=== PATIENT | female | born 1950 | race Caucasian/White ===

== ENCOUNTER 2017-05-05 07:03 | Day surgery (SDC) | payer MEDICARE ==
[~2017-05-05] VITALS: Ht 154.9 cm; Wt 68.0 kg
[~2017-05-05 07:03] MED LIST: ALPR.5 PO; ANORO ELLIPTA1 EACH INH; ASPI325 PO; ATOR20 PO; CLOP75 PO; ESCI10 PO; FISH1000 PO; NITR.4SL SL; Omeprazole20 M1 PO; Prinivil10 MG PO; VITAMIN D31000 UNIT PO
== END 2017-05-05 23:24 | disposition home or self-care (01) ==
LOC: ORSCMMR 07:03
PROVIDERS: Internal Medicine Gastroenterology
PROC: 0DB68ZX Excision of Stomach, Via Natural or Artificial Opening Endoscopic, Diagnostic (ICD-10-PCS; principal; 2017-05-05 08:00)
PROC: 0DB88ZX Excision of Small Intestine, Via Natural or Artificial Opening Endoscopic, Diagnostic (ICD-10-PCS; principal; 2017-05-05 08:00)
PROC: 0DBK8ZX Excision of Ascending Colon, Via Natural or Artificial Opening Endoscopic, Diagnostic (ICD-10-PCS; principal; 2017-05-05 08:00)
PROC: 0DBN8ZX Excision of Sigmoid Colon, Via Natural or Artificial Opening Endoscopic, Diagnostic (ICD-10-PCS; principal; 2017-05-05 08:00)
PROC: 0DBM8ZX Excision of Descending Colon, Via Natural or Artificial Opening Endoscopic, Diagnostic (ICD-10-PCS; principal; 2017-05-05 08:00)
PROC: 0DBL8ZX Excision of Transverse Colon, Via Natural or Artificial Opening Endoscopic, Diagnostic (ICD-10-PCS; principal; 2017-05-05 08:00)
PROC: 0DBH8ZX Excision of Cecum, Via Natural or Artificial Opening Endoscopic, Diagnostic (ICD-10-PCS; principal; 2017-05-05 08:00)
DX: R10.13 Epigastric pain (principal); K29.80 Duodenitis without bleeding; K29.70 Gastritis, unspecified, without bleeding; K44.9 Diaphragmatic hernia without obstruction or gangrene; Z86.010 Personal history of colon polyps; D12.0 Benign neoplasm of cecum; D12.2 Benign neoplasm of ascending colon; D12.3 Benign neoplasm of transverse colon; K63.5 Polyp of colon; K64.8 Other hemorrhoids; K64.4 Residual hemorrhoidal skin tags; Z80.0 Family history of malignant neoplasm of digestive organs; J44.9 Chronic obstructive pulmonary disease, unspecified; G47.33 Obstructive sleep apnea (adult) (pediatric); F17.210 Nicotine dependence, cigarettes, uncomplicated; Z79.899 Other long term (current) drug therapy; Z79.82 Long term (current) use of aspirin
CPT/HCPCS: 88305; 88342; J2250; J7120

== ENCOUNTER → 2017-09-16 | Outpatient (CLI) | payer MEDICARE ==
[2017-09-16 13:22] LABS: Adenovirus F 40/41 Not Detected (NOT DETECT); Astrovirus Not Detected (NOT DETECT); Campylobacter Sp Not Detected (NOT DETECT); Cryptosporidium Not Detected (NOT DETECT); Cyclospora Cayetanensis Not Detected (NOT DETECT); E. Coli O157 Not Detected (NOT DETECT); Entamoeba Histolytica Not Detected (NOT DETECT); Enteroaggregative E. coli-EAEC Not Detected (NOT DETECT); Enteropathogenic E. coli-EPEC Not Detected (NOT DETECT); Enterotoxigenic E. coli-ETEC Not Detected (NOT DETECT); Giardia Lamblia Not Detected (NOT DETECT); Norovirus GI/GII Not Detected (NOT DETECT); Plesiomonas Shigelloides Not Detected (NOT DETECT); Rotavirus A Not Detected (NOT DETECT); Salmonella Sp Not Detected (NOT DETECT); Sapovirus Not Detected (NOT DETECT); Shiga Toxin-prod E. coli-STEC Not Detected (NOT DETECT); Shigella/Enteroin E. coli-EIEC Not Detected (NOT DETECT); Vibrio Cholerae Not Detected (NOT DETECT); Vibrio Sp Not Detected (NOT DETECT); Yersinia Enterocolitica Not Detected (NOT DETECT)
== END ==
LOC: LAB EV 13:15
PROVIDERS: Physician Assistant
DX: K92.1 Melena (principal)
CPT/HCPCS: 87507

== ENCOUNTER 2018-05-24 09:12 | Day surgery (SDC) | payer MEDICARE ==
[~2018-05-24] VITALS: Ht 154.9 cm; Wt 73.0 kg
[~2018-05-24 09:12] MED LIST changes: +ALBU90OI INH; +NAPR220 PO; +QVAR REDIHALE10.6 G1 INH; +Toprol Xl25 MG PO
--- NOTE | 2018-05-24 09:54 | NUR ---
0930 Ambulatory in Day Surgery History, Chart, Medications and Allergies reviewed before start of procedure.Lungs clear T/O to Auscultation. Patient confirms NPO status and agrees with scheduled surgery. Pre-Op teaching done. Pt verbalizes understanding.
--- NOTE | 2018-05-24 11:00 | NUR ---
05/24/18 Oumou Pabon PATIENT DETERMINED TO BE ASA APPROPRIATE FOR PROPOFOL SEDATION PRIOR TO START OF PROCEDURE BY DR. ALMANZA. 3-LEAD EKG REVIEWED WITH PHYSICIAN PRIOR TO START OF PROCEDURE. PATIENT CONFIRMS NPO STATUS AND AGREES WITH SCHEDULED PROCEDURE. History, Chart, Medications and Allergies reviewed before start of procedure. MONITOR INTACT WITH CONTINUOUS PULSE OXIMETRY AND INTERMITTENT BP. O2 VIA N/C INTACT THROUGHOUT SEDATION/PROCEDURE, 4 L NC.
--- NOTE | 2018-05-24 11:29 | NUR ---
DR ALMANZA TALKING TO PATIENT. PT NEEDS TO KEEP FOLLOW UP APPOINTMENT. PT NEEDS TO STOP NSAIDS AND RESTART ASPIRIN AND PLAVIX THAT SHE DISCONTINUED A WEEK AGO.
--- NOTE | 2018-05-24 12:19 | NUR ---
Patient up to Ambulate independently. Gait steady. Discharge instructions reviewed with patient. Patient verbalizes understanding. Copy given to patient to take home. Patient States Post-Procedure ride home has been arranged. Discharged via wheelchair to private car for ride home. LUNGS REMAIN CLEAR T/O, PT KEEPING SPO2 AT BASELINE PRIOR TO DISCHARGE. PT AWARE OF ORDERS TO STOP NSAIDS AND RESTART ASA AND PLAVIX. ALL BELONGIGNS RETURNED. IS PROVIDING RIDE HOME.
== END 2018-05-24 22:51 | disposition home or self-care (01) ==
LOC: ORSCMMR 09:12 → ORD 10:00 → ORSCMMR 22:51
PROVIDERS: Internal Medicine Gastroenterology
PROC: 0DB68ZX Excision of Stomach, Via Natural or Artificial Opening Endoscopic, Diagnostic (ICD-10-PCS; principal; 2018-05-24 10:00)
PROC: 0DB98ZX Excision of Duodenum, Via Natural or Artificial Opening Endoscopic, Diagnostic (ICD-10-PCS; principal; 2018-05-24 10:00)
DX: K29.70 Gastritis, unspecified, without bleeding (principal); K29.80 Duodenitis without bleeding; B96.81 Helicobacter pylori [H. pylori] as the cause of diseases classified elsewhere; I25.10 Atherosclerotic heart disease of native coronary artery without angina pectoris; Z79.899 Other long term (current) drug therapy; G47.33 Obstructive sleep apnea (adult) (pediatric); J44.9 Chronic obstructive pulmonary disease, unspecified; F17.210 Nicotine dependence, cigarettes, uncomplicated
CPT/HCPCS: 88305; 88341; 88342; J2250; J3010; J7120

== ENCOUNTER 2018-08-25 06:51 | Day surgery (SDC) | payer MEDICARE ==
[~2018-08-25] VITALS: Wt 72.4 kg
[~2018-08-25 06:51] MED LIST changes: -ESCI10 PO; +ESCI20 PO; -Prinivil10 MG PO; +ZESTRIL40 MG PO
--- NOTE | 2018-08-25 07:13 | NUR ---
INTO [facility] ADMISSION STARTED AT THIS TIME. History, Chart, Medications and Allergies reviewed before start of procedure.Lungs clear T/O to Auscultation. Patient States Post-Procedure ride home has been arranged.
--- NOTE | 2018-08-25 08:05 | NUR ---
08/25/18 0805 Tra Anders Bite Block PlacedHistory, Chart, Medications and Allergies reviewed before start of procedure.Patient to ENDO 1MONITOR INTACT WITH CONTINUOUS PULSE OXIMETRY AND INTERMITTENT BP.O2 VIA N/C INTACT THROUGHOUT SEDATION/PROCEDURE.
[2018-08-26] MEDS ORDERED: INCRUSE ELLI62.5 MCG INH (15:25)
[2018-08-26] MEDS ORDERED: PANT40 PO (15:26)
[2018-08-26] MEDS ORDERED: ALPR.5 PO (15:28)
[2018-08-26] MEDS ORDERED: ACET325 PO (15:28)
[2018-08-26] MEDS ORDERED: LO-DOSE ASPIRIN81 MG PO (16:01)
[2018-08-26] MEDS ORDERED: VITAMIN B-625 MG PO (16:02)
== END 2018-08-25 23:09 | disposition home or self-care (01) ==
LOC: ORSCMMR 06:51 → ORD 08:00 → ORSCMMR 23:09
PROVIDERS: Internal Medicine Gastroenterology
PROC: 0DB68ZX Excision of Stomach, Via Natural or Artificial Opening Endoscopic, Diagnostic (ICD-10-PCS; principal; 2018-08-25 08:00)
PROC: 0DB58ZX Excision of Esophagus, Via Natural or Artificial Opening Endoscopic, Diagnostic (ICD-10-PCS; principal; 2018-08-25 08:00)
DX: K25.3 Acute gastric ulcer without hemorrhage or perforation (principal); K29.50 Unspecified chronic gastritis without bleeding; B37.81 Candidal esophagitis; I25.10 Atherosclerotic heart disease of native coronary artery without angina pectoris; Z79.82 Long term (current) use of aspirin; I25.2 Old myocardial infarction; G47.33 Obstructive sleep apnea (adult) (pediatric); J44.9 Chronic obstructive pulmonary disease, unspecified; Z79.899 Other long term (current) drug therapy
CPT/HCPCS: 88305; 88312; J2250; J3010; J7120

== ENCOUNTER 2018-08-26 12:48 | Observation (INO) | payer MEDICARE ==
[~2018-08-26] VITALS: Ht 152.4 cm; Wt 71.2 kg
[2018-08-26 13:38] LABS: BASOPHILS ABSOLUTE AUTO 0.04 K/mm3 (0.00-0.23); BASOPHILS PERCENT AUTO 0 % (0-2); EOSINOPHILS ABSOLUTE AUTO 0.03 K/mm3 (0.00-0.68); EOSINOPHILS PERCENT AUTO 0 % (0-6); Hematocrit 42.8 % (33.0-51.0); Hemoglobin 14.1 g/dL (11.5-16.0); IMMATURE GRAN ABSOLUTE AUTO 0.05 K/mm3 (0.00-0.10); IMMATURE GRAN PERCENT AUTO 0 % (0-1); LYMPHOCYTES ABSOLUTE AUTO 2.15 K/mm3 (0.84-5.20); LYMPHOCYTES PERCENT AUTO 16 % (21-46); MONOCYTES ABSOLUTE AUTO 0.83 K/mm3 (0.16-1.47); MONOCYTES PERCENT AUTO 6 % (4-13); Mean Corpuscular HGB 32.9 pg (26.0-34.0); Mean Corpuscular HGB Conc 32.9 g/dL (31.5-36.5); Mean Corpuscular Volume 100 fL (80-100); Mean Platelet Volume 11.5 fL (9.1-12.4); NEUTROPHILS ABSOLUTE AUTO 10.06 K/mm3 (1.96-9.15); NEUTROPHILS PERCENT AUTO 77 % (41-73); Platelet Count 178 K/mm3 (150-400); RDW Coefficient Variation 12.3 % (11.7-14.2); RDW Standard Deviation 45.3 fL (35.1-46.3); Red Blood Cell Count 4.29 M/mm3 (3.80-5.20); White Blood Cell Count 13.16 K/mm3 (4.00-11.30)
[2018-08-26 14:05] LABS: Albumin, Blood 3.9 g/dL (3.4-5.0); Bilirubin, Total 0.5 mg/dL (0.1-1.0); Bun/Creatinine Ratio 10.9 (12.0-20.0); Calcium, Blood 8.8 mg/dL (8.5-10.1); Creatinine, Blood 1.01 mg/dL (0.40-1.00); Globulin, Blood 3.8 g/dL (2.2-4.0); Potassium, Blood 4.1 mmol/L (3.5-5.5); Total Protein, Blood 7.7 g/dL (6.4-8.2)
[2018-08-26] MEDS ORDERED: INCRUSE ELLI62.5 MCG INH (15:25)
[2018-08-26] MEDS ORDERED: PANT40 PO (15:26)
[2018-08-26] MEDS ORDERED: ACET325 PO (15:28)
[2018-08-26] MEDS ORDERED: ALPR.5 PO (15:28)
[2018-08-26] MEDS ORDERED: LO-DOSE ASPIRIN81 MG PO (16:01)
[2018-08-26] MEDS ORDERED: VITAMIN B-625 MG PO (16:02)
[2018-08-26 17:01] LABS: International Normalized Ratio 0.91; Prothrombin Time Results 9.7 Sec (9.7-11.5)
[2018-08-27 04:56] LABS: Hematocrit 39.3 % (33.0-51.0); Hemoglobin 13.2 g/dL (11.5-16.0)
[2018-08-27 13:06] LABS: Hematocrit 40.9 % (33.0-51.0); Hemoglobin 13.7 g/dL (11.5-16.0)
--- NOTE | 2018-08-27 14:04 | NUR ---
Ambulatory in Day Surgery History, Chart, Medications and Allergies reviewed before start of procedure.Lungs clear T/O to Auscultation. Patient confirms NPO status and agrees with scheduled surgery. Pre-Op teaching done. Pt verbalizes understanding.
--- NOTE | 2018-08-27 16:04 | NUR ---
08/27/18 [address] per dr de los santos would like to use propofol for procedure instead of fent. and versed. nurse agrees and patient maintained sats no less than 94% during entire procedure and predominately was saturating at 99-100 %
--- NOTE | 2018-08-27 17:51 | NUR ---
SHIFT SUMMARY NO ACUTE CHANGES. PATIENT STILL EXPERIENCING SOME JILLIAN BLOOD PER RECTUM. DR. ROYAL CONSULTED ON PATIENT TODAY. COLONOSCOPY COMPLETED THIS AFTERNOON. IMAGES SHOW ISCHEMIC COLITIS. PATIENT DENIES PAIN, NAUSEA, AND SHORTNESS OF BREATH. PATIENT UP SBA IN ROOM POST PROCEDURE. CALL LIGHT IN REACH, WILL CONTINUE TO MONITOR.
[2018-08-27 21:08] LABS: Hematocrit 37.9 % (33.0-51.0); Hemoglobin 12.6 g/dL (11.5-16.0)
--- NOTE | 2018-08-27 21:26 | NUR ---
NOTIFIED TELE MONITOR THAT PT WENT OUTSIDE TO SMOKE. PT UNDERSTANDS THE RISKS OF BEING OFF TELE. PT USED W/C TO GO OUTSIDE. NO COMPLAINTS OF DIZZINESS OR LIGHTHEADEDNESS.
--- NOTE | 2018-08-27 21:57 | NUR ---
PT BACK TO RM. NOTIFIED TELE MONITOR. CURRENTLY 96 NSR.
--- NOTE | 2018-08-28 04:40 | NUR ---
SHIFT SUMMARY: PT FEELING BETTER. NO BLOODY STOOLS. PT HAS BEEN INDEPENDENT IN RM. WENT OUTSIDE TWICE AT THE BEGINNING OF SHIFT WITHOUT DIFFICULTY. NO COMPLAINTS OF PAIN OR NAUSEA. H AND H STABLE. NO ACUTE CHANGES. WILL CONTINUE TO MONITOR AND PROVIDE CARE UNTIL SHIFT REPORT.
[2018-08-28] MEDS ORDERED: FLUC100 PO (11:09)
[2018-08-28] MEDS ORDERED: CIPR500 PO (11:10)
[2018-08-28] MEDS ORDERED: METR500 PO (11:11)
--- NOTE | 2018-08-28 14:02 | NUR ---
SHIFT SUMMARY PT SITTING IN [place], WANTING TO GO OUT TO [facility] DURING SHIFT REPORT. PT ALSO WANTED TO GO HOME DURING SHIFT REPORT. ADMITTED FOR JILLIAN RED BLOOD PER RECTUM, BUT REPORTED NO BLOODY STOOLS SINCE ADMISSION. STOOL SAMPLES ORDERED, BUT UNABLE TO OBTAIN, PT HAD NOT HAD ANY BM'S WHILE HERE. DENIED PAIN, BUT REPORTED OCCASSIONAL SM AMT OF ABD CRAMPING. PT UP AMBULATING IN HALLS AND OUT TO K SEVERAL TIMES DURING THE AM. DR WANG IN TO SEE PT AFTER START OF SHIFT. VERBAL ORDER TO D/C ISOLATION PT DX WITH COLITIS. D/C ORDERS PLACED. PT INFORMED. PT OUT TO [facility] AGAIN WHEN DR ROYAL TO TO SEE PT. UPDATE GIVEN AND PT TO BE D/C'D AND FOLLOW UP WITH DR ALMANZA OUT PT. IV TO LAC D/C'D WNL'S. D/C ORDERS DISCUSSED WITH PT; VERBALIZED UNDERSTANDING. PT TO CONTINUE ABX'S ORDERED. MEDICATIONS FAXED TO PHARMACY ORDERED. PT D/C'D AT 11:45 VIA W/C WITH IT APPLICATION DEVELOPMENT MANAGER AND .
== END 2018-08-28 11:44 | disposition home or self-care (01) ==
LOC: ER 12:48 → MEDS 12:49 → ENPENDDIS 08-28 10:22 → MEDS 08-28 11:44
PROVIDERS: Emergency Medicine; Internal Medicine Gastroenterology; ADMIT Internal Medicine
PROC: 0DBN8ZX Excision of Sigmoid Colon, Via Natural or Artificial Opening Endoscopic, Diagnostic (ICD-10-PCS; principal; 2018-08-27 14:00)
DX: K52.9 Noninfective gastroenteritis and colitis, unspecified (principal); K55.9 Vascular disorder of intestine, unspecified; K57.30 Diverticulosis of large intestine without perforation or abscess without bleeding; I10 Essential (primary) hypertension; I25.10 Atherosclerotic heart disease of native coronary artery without angina pectoris; J44.9 Chronic obstructive pulmonary disease, unspecified; F32.9 Major depressive disorder, single episode, unspecified; G47.33 Obstructive sleep apnea (adult) (pediatric); F17.210 Nicotine dependence, cigarettes, uncomplicated; Z99.89 Dependence on other enabling machines and devices; Z88.5 Allergy status to narcotic agent
CPT/HCPCS: 36415; 46600; 74176; 80053; 85014; 85018; 85025; 85610; 85730; 86850; 86900; 86901; 88305; 93005; 93010; 94762; 96361; 96365-59; 96366; 96367; 96375-59; 96376; 99285-25; C9113; G0378; J0744; J2250; J2704; J3010; J7050; J7120

== ENCOUNTER → 2018-10-12 | Outpatient (CLI) | payer MEDICARE ==
[~2018-10-12] MED LIST changes: +ACET325 PO; +CIPR500 PO; +FLUC100 PO; +INCRUSE ELLI62.5 MCG INH; +LO-DOSE ASPIRIN81 MG PO; +METR500 PO; +PANT40 PO; +VITAMIN B-625 MG PO
== END | disposition home or self-care (01) ==
LOC: LAB 11:12 → LAB SHORT 11:12
DX: R05 Cough (principal)
CPT/HCPCS: 87070; 87205

== ENCOUNTER → 2018-12-08 | Outpatient (CLI) | payer MEDICARE | END | disposition home or self-care (01) | LOC: LAB EV 12:00 → LAB SHORT 12:00 | DX: N30.90 Cystitis, unspecified without hematuria (principal) | CPT/HCPCS: 87077; 87086; 87186 ==

== ENCOUNTER 2019-02-21 14:03 | Emergency (ER) | payer MEDICARE ==
[~2019-02-21] VITALS: Ht 152.4 cm; Wt 72.6 kg
[2019-02-21 14:39] LABS: BASOPHILS ABSOLUTE AUTO 0.07 K/mm3 (0.00-0.23); BASOPHILS PERCENT AUTO 1 % (0-2); EOSINOPHILS PERCENT AUTO 3 % (0-6); Hematocrit 40.8 % (33.0-51.0); Hemoglobin 13.2 g/dL (11.5-16.0); IMMATURE GRAN ABSOLUTE AUTO 0.04 K/mm3 (0.00-0.10); IMMATURE GRAN PERCENT AUTO 0 % (0-1); LYMPHOCYTES ABSOLUTE AUTO 3.49 K/mm3 (0.84-5.20); LYMPHOCYTES PERCENT AUTO 35 % (21-46); MONOCYTES ABSOLUTE AUTO 0.63 K/mm3 (0.16-1.47); MONOCYTES PERCENT AUTO 6 % (4-13); Mean Corpuscular HGB 32.9 pg (26.0-34.0); Mean Corpuscular HGB Conc 32.4 g/dL (31.5-36.5); Mean Corpuscular Volume 102 fL (80-100); Mean Platelet Volume 11.8 fL (9.1-12.4); NEUTROPHILS ABSOLUTE AUTO 5.58 K/mm3 (1.96-9.15); NEUTROPHILS PERCENT AUTO 55 % (41-73); Platelet Count 165 K/mm3 (150-400); RDW Coefficient Variation 12.2 % (11.7-14.2); RDW Standard Deviation 46.3 fL (35.1-46.3); Red Blood Cell Count 4.01 M/mm3 (3.80-5.20); White Blood Cell Count 10.11 K/mm3 (4.00-11.30)
[2019-02-21 14:56] LABS: Alanine Aminotransfer (ALT/SGP 21 U/L (12-78); Albumin, Blood 3.8 g/dL (3.4-5.0); Alk Phos 124 U/L (50-136); Anion Gap 6 mmol/L (6-16); Aspartate Aminotrans (AST/SGOT 18 U/L (12-37); Bilirubin, Total 0.5 mg/dL (0.1-1.0); Blood Urea Nitrogen 14 mg/dL (8-24); Bun/Creatinine Ratio 14.7 (12.0-20.0); CO2, Blood 28 mmol/L (21-32); Calcium, Blood 9.1 mg/dL (8.5-10.1); Chloride, Blood 107 mmol/L (98-108); Creatinine, Blood 0.96 mg/dL (0.40-1.00); Globulin, Blood 3.7 g/dL (2.2-4.0); Glomerular Filtration Rate >60 (60-); Glucose, Blood 111 mg/dL (70-99); Potassium, Blood 3.8 mmol/L (3.5-5.5); Sodium, Blood 141 mmol/L (136-145); Total Protein, Blood 7.5 g/dL (6.4-8.2)
[2019-02-21] MEDS ORDERED: Klonopin0.5 MG PO (17:05)
[2019-02-21] MEDS ORDERED: Vistaril25 MG PO (17:05)
== END 2019-02-21 17:30 | disposition home or self-care (01) ==
LOC: ER 14:03
PROVIDERS: Physician Assistant
DX: A15.0 Tuberculosis of lung (principal); I25.10 Atherosclerotic heart disease of native coronary artery without angina pectoris; J44.9 Chronic obstructive pulmonary disease, unspecified; F32.9 Major depressive disorder, single episode, unspecified; F17.210 Nicotine dependence, cigarettes, uncomplicated; Z88.5 Allergy status to narcotic agent; Z79.899 Other long term (current) drug therapy
CPT/HCPCS: 36415; 71046; 80053; 85025; 99283-25

== ENCOUNTER 2019-03-09 09:48 | Day surgery (SDC) | payer MEDICARE ==
[~2019-03-09 09:48] MED LIST changes: +Klonopin0.5 MG PO; +Vistaril25 MG PO
--- NOTE | 2019-03-09 11:33 | NUR ---
"DAY SURGERY RN | REPORT FROM ASHISH HUIZAR PATIENT VSS. A/O. STATES PAIN 05/09. SITE C/D/I. NO ISSUES. EATING FOOD AND DRINKING WATER."
--- NOTE | 2019-03-09 11:44 | NUR ---
"DAY SURGERY RN | REPORT TO KODAK HUIZAR"
--- NOTE | 2019-03-09 13:18 | NUR ---
PT TAKEN TO IMAGING FOR SECOND CHEST XRAY VIA GURNEY WITH FUGITIVE DETECTIVE. PLAN IS TO DISCHARGE PT FROM IMAGING UNLESS FURTHER OBSERVATION IS NEEDED.
== END 2019-03-09 22:49 | disposition home or self-care (01) ==
LOC: CT 09:48
DX: C34.2 Malignant neoplasm of middle lobe, bronchus or lung (principal); J43.9 Emphysema, unspecified; I10 Essential (primary) hypertension; F17.210 Nicotine dependence, cigarettes, uncomplicated; Z79.82 Long term (current) use of aspirin; Z79.02 Long term (current) use of antithrombotics/antiplatelets; Z79.51 Long term (current) use of inhaled steroids; Z79.899 Other long term (current) drug therapy; Z88.5 Allergy status to narcotic agent; Z88.1 Allergy status to other antibiotic agents; Z95.5 Presence of coronary angioplasty implant and graft
CPT/HCPCS: 32405; 71045; 77012; 88305; 88341; 88342

== ENCOUNTER → 2019-06-24 | Outpatient (CLI) | payer MEDICARE ==
[2019-06-24 12:29] LABS: Source, Urine Clean Catch
[2019-06-24 13:40] LABS: Bacteria Mod /hpf; Red Blood Cells, Urine 0-2 /hpf (0-2); Squamous Epithelial Cells Few /hpf (Few); White Blood Cells, Urine 0-2 /hpf (0-5)
== END | disposition home or self-care (01) ==
LOC: LAB EV 12:26 → LAB SHORT 12:26
PROVIDERS: Physician Assistant
DX: R30.9 Painful micturition, unspecified (principal)
CPT/HCPCS: 81015; 87086

== ENCOUNTER → 2019-07-22 | Outpatient (CLI) | payer MEDICARE ==
[~2019-07-22] MED LIST changes: +ASPI81CH PO; +ONDA4ODT PO; +OXYC10TA19 PO
[2019-07-22 14:29] LABS: Bilirubin, Urine Neg (Neg); Blood, Urine 3+ (Neg); Glucose Qualitative, Urine Neg (Neg); Ketones, Urine Neg (Neg); Leukocyte Esterase, Urine Neg (Neg); Nitrite, Urine Neg (Neg); Protein, Urine Neg (Neg); Urobilinogen, Urine 1+ (Normal)
[2019-07-22 14:37] LABS: Appearance, Urine Clear (Clear); Color, Urine Amber (P-Yellow)
[2019-07-22 14:44] LABS: Bacteria Rare /hpf; Squamous Epithelial Cells Few /hpf (Few); White Blood Cells, Urine Not Seen /hpf (0-5)
== END | disposition home or self-care (01) ==
LOC: LAB SHORT 13:30 → LAB 13:30
PROVIDERS: Internal Medicine Critical Care Medicine
DX: R30.0 Dysuria (principal); R05 Cough
CPT/HCPCS: 81001; 87070; 87205

== ENCOUNTER 2019-07-27 12:32 | Emergency (ER) | payer MEDICARE ==
[~2019-07-27] VITALS: Ht 152.4 cm; Wt 68.5 kg
[~2019-07-27 12:32] MED LIST changes: -ASPI81CH PO; -ONDA4ODT PO; -OXYC10TA19 PO
[2019-07-27 14:49] LABS: BASOPHILS ABSOLUTE AUTO 0.08 K/mm3 (0.00-0.23); BASOPHILS PERCENT AUTO 1 % (0-2); EOSINOPHILS ABSOLUTE AUTO 0.73 K/mm3 (0.00-0.68); EOSINOPHILS PERCENT AUTO 6 % (0-6); Hematocrit 34.9 % (33.0-51.0); Hemoglobin 10.8 g/dL (11.5-16.0); IMMATURE GRAN ABSOLUTE AUTO 0.13 K/mm3 (0.00-0.10); IMMATURE GRAN PERCENT AUTO 1 % (0-1); LYMPHOCYTES ABSOLUTE AUTO 2.05 K/mm3 (0.84-5.20); LYMPHOCYTES PERCENT AUTO 16 % (21-46); MONOCYTES ABSOLUTE AUTO 0.96 K/mm3 (0.16-1.47); MONOCYTES PERCENT AUTO 7 % (4-13); Mean Corpuscular HGB 28.6 pg (26.0-34.0); Mean Corpuscular HGB Conc 30.9 g/dL (31.5-36.5); Mean Corpuscular Volume 93 fL (80-100); Mean Platelet Volume 10.9 fL (9.1-12.4); NEUTROPHILS ABSOLUTE AUTO 9.29 K/mm3 (1.96-9.15); NEUTROPHILS PERCENT AUTO 70 % (41-73); Platelet Count 218 K/mm3 (150-400); RDW Coefficient Variation 13.2 % (11.7-14.2); RDW Standard Deviation 44.8 fL (35.1-46.3); Red Blood Cell Count 3.77 M/mm3 (3.80-5.20); White Blood Cell Count 13.24 K/mm3 (4.00-11.30)
[2019-07-27 15:12] LABS: Albumin, Blood 2.9 g/dL (3.4-5.0); Albumin/Globulin Ratio 0.6 (0.8-1.8); Bilirubin, Total 0.3 mg/dL (0.1-1.0); Bun/Creatinine Ratio 8.7 (12.0-20.0); Calcium, Blood 7.8 mg/dL (8.5-10.1); Creatinine, Blood 1.04 mg/dL (0.40-1.00); Globulin, Blood 4.8 g/dL (2.2-4.0); Potassium, Blood 4.2 mmol/L (3.5-5.5); Total Protein, Blood 7.7 g/dL (6.4-8.2)
[2019-07-27 15:43] LABS: Source, Urine Clean Catch
[2019-07-27 16:01] LABS: Bilirubin, Urine Neg (Neg); Blood, Urine 3+ (Neg); Glucose Qualitative, Urine Neg (Neg); Ketones, Urine Neg (Neg); Leukocyte Esterase, Urine Neg (Neg); Nitrite, Urine Neg (Neg); Protein, Urine Neg (Neg); Specific Gravity, Urine 1.005 (1.003-1.022); Urobilinogen, Urine NORM (Normal)
[2019-07-27] MEDS ORDERED: ATOR20 PO (16:06)
[2019-07-27 16:07] LABS: Appearance, Urine Clear (Clear); Color, Urine Yellow (P-Yellow)
[2019-07-27] MEDS ORDERED: ASPI81CH PO (16:07)
[2019-07-27 16:08] LABS: White Blood Cells, Urine Not Seen /hpf (0-5)
[2019-07-27 16:09] LABS: Bacteria Few /hpf; Squamous Epithelial Cells Few /hpf (Few)
[2019-07-27] MEDS ORDERED: OXYC10TA19 PO (16:09)
[2019-07-27] MEDS ORDERED: ONDA4ODT PO (16:09)
== END 2019-07-27 16:30 | disposition home or self-care (01) ==
LOC: ER 12:32
PROVIDERS: Physician Assistant
DX: K59.00 Constipation, unspecified (principal); C34.92 Malignant neoplasm of unspecified part of left bronchus or lung; C34.91 Malignant neoplasm of unspecified part of right bronchus or lung; C78.7 Secondary malignant neoplasm of liver and intrahepatic bile duct; C79.51 Secondary malignant neoplasm of bone; J44.9 Chronic obstructive pulmonary disease, unspecified; I25.10 Atherosclerotic heart disease of native coronary artery without angina pectoris; F32.9 Major depressive disorder, single episode, unspecified; F17.210 Nicotine dependence, cigarettes, uncomplicated; Z88.5 Allergy status to narcotic agent; Z79.899 Other long term (current) drug therapy
CPT/HCPCS: 74177; 80053; 81001; 85025; 99284-25; Q9967

== ENCOUNTER 2019-09-04 09:49 | Emergency (ER) | payer MEDICARE ==
[~2019-09-04] VITALS: Ht 152.4 cm; Wt 63.5 kg
[~2019-09-04 09:49] MED LIST changes: +ASPI81CH PO; +ONDA4ODT PO; +OXYC10TA19 PO
[2019-09-04] MEDS ORDERED: ALPR.5 PO (10:32)
[2019-09-04] MEDS ORDERED: NYSTATIN100000 UN1 PO (10:32)
[2019-09-04] MEDS ORDERED: Ondansetron Odt8 MG MM (10:33)
[2019-09-04] MEDS ORDERED: Deltasone 10 mg10 MG PO (10:33)
[2019-09-04] MEDS ORDERED: ESCI20 PO (10:34)
[2019-09-04] MEDS ORDERED: FOLI1 PO (10:34)
[2019-09-04 10:35] LABS: Source, Urine Clean Catch
[2019-09-04] MEDS ORDERED: OXYC15ER PO (10:35)
[2019-09-04] MEDS ORDERED: DEXA4 PO (10:35)
[2019-09-04] MEDS ORDERED: OXYC10TA19 PO (10:37)
[2019-09-04 10:40] LABS: Appearance, Urine Clear (Clear); Bilirubin, Urine Neg (Neg); Blood, Urine 3+ (Neg); Color, Urine Yellow (P-Yellow); Glucose Qualitative, Urine Neg (Neg); Ketones, Urine Neg (Neg); Leukocyte Esterase, Urine Neg (Neg); Nitrite, Urine Neg (Neg); Protein, Urine 1+ (Neg); Specific Gravity, Urine 1.015 (1.003-1.022); Urobilinogen, Urine NORM (Normal)
[2019-09-04 10:53] LABS: Hematocrit 27.3 % (33.0-51.0); Hemoglobin 8.5 g/dL (11.5-16.0); Mean Corpuscular HGB 28.4 pg (26.0-34.0); Mean Corpuscular HGB Conc 31.1 g/dL (31.5-36.5); Mean Corpuscular Volume 91 fL (80-100); Mean Platelet Volume 10.9 fL (9.1-12.4); Platelet Count 118 K/mm3 (150-400); RDW Standard Deviation 53.4 fL (35.1-46.3); Red Blood Cell Count 2.99 M/mm3 (3.80-5.20)
[2019-09-04 11:11] LABS: Bacteria Not Seen /hpf; Squamous Epithelial Cells Few /hpf (Few); White Blood Cells, Urine Not Seen /hpf (0-5)
[2019-09-04 11:20] LABS: Alanine Aminotransfer (ALT/SGP 29 U/L (12-78); Albumin, Blood 2.7 g/dL (3.4-5.0); Albumin/Globulin Ratio 0.6 (0.8-1.8); Alk Phos 149 U/L (50-136); Anion Gap 8 mmol/L (6-16); Aspartate Aminotrans (AST/SGOT 30 U/L (12-37); Bilirubin, Total 0.9 mg/dL (0.1-1.0); Blood Urea Nitrogen 18 mg/dL (8-24); CO2, Blood 23 mmol/L (21-32); Calcium, Blood 8.1 mg/dL (8.5-10.1); Chloride, Blood 105 mmol/L (98-108); Creatinine, Blood 0.67 mg/dL (0.40-1.00); Globulin, Blood 4.6 g/dL (2.2-4.0); Glomerular Filtration Rate >60 (60-); Glucose, Blood 115 mg/dL (70-99); Potassium, Blood 3.4 mmol/L (3.5-5.5); Sodium, Blood 136 mmol/L (136-145); Total Protein, Blood 7.3 g/dL (6.4-8.2)
[2019-09-04 11:25] LABS: BAND PERCENT MAN 6 % (0-8); BASOPHILS PERCENT MAN 0 % (0-2); EOSINOPHILS PERCENT MAN 0 % (0-6); LYMPHOCYTES ABSOLUTE MAN 0.46 K/mm3 (0.84-5.20); LYMPHOCYTES PERCENT MAN 13 % (21-46); MONOCYTES ABSOLUTE MAN 0.28 K/mm3 (0.16-1.47); MONOCYTES PERCENT MAN 8 % (4-13); NEUTROPHILS ABSOLUTE MAN 2.84 K/mm3 (1.96-9.15); SEG NEUTROPHILS PERCENT MAN 73 % (41-73); TOTAL CELLS COUNTED 100
[2019-09-04] MEDS ORDERED: Bactrim Ds Tab1 EACH PO (12:00)
[2019-09-04] MEDS ORDERED: MIRALAX119 G2 PO (12:00)
[2019-09-04] MEDS ORDERED: CEPH500 PO (12:00)
[2019-09-04] MEDS ORDERED: Reglan10 MG PO (13:15)
== END 2019-09-04 15:41 | disposition home or self-care (01) ==
LOC: ER 09:49
PROVIDERS: Emergency Medicine
DX: K59.00 Constipation, unspecified (principal); R11.2 Nausea with vomiting, unspecified; E87.6 Hypokalemia; L03.039 Cellulitis of unspecified toe; L02.619 Cutaneous abscess of unspecified foot; L23.7 Allergic contact dermatitis due to plants, except food; Z88.5 Allergy status to narcotic agent; Z79.899 Other long term (current) drug therapy; Z79.52 Long term (current) use of systemic steroids; J43.9 Emphysema, unspecified; I25.10 Atherosclerotic heart disease of native coronary artery without angina pectoris; F32.9 Major depressive disorder, single episode, unspecified; F17.210 Nicotine dependence, cigarettes, uncomplicated; Z85.118 Personal history of other malignant neoplasm of bronchus and lung; Z85.05 Personal history of malignant neoplasm of liver; Z85.830 Personal history of malignant neoplasm of bone
CPT/HCPCS: 36415; 80053; 81001; 83690; 85025; 93005; 93010; 96361; 96365; 96366; 96375; 99284-25; J1170; J1200; J2405; J2765; J3480; J7030

== ENCOUNTER 2020-01-01 20:38 | Emergency (ER) | payer MEDICARE ==
[~2020-01-01] VITALS: Ht 152.4 cm; Wt 59.4 kg
[~2020-01-01 20:38] MED LIST changes: +Bactrim Ds Tab1 EACH PO; +CEPH500 PO; +DEXA4 PO; +Deltasone 10 mg10 MG PO; +FOLI1 PO; +MIRALAX119 G2 PO; +NYSTATIN100000 UN1 PO; +OXYC15ER PO; +Ondansetron Odt8 MG MM; +Reglan10 MG PO
[2020-01-01 21:07] LABS: BASOPHILS ABSOLUTE AUTO 0.02 K/mm3 (0.00-0.23); BASOPHILS PERCENT AUTO 0 % (0-2); EOSINOPHILS PERCENT AUTO 0 % (0-6); Hematocrit 47.3 % (33.0-51.0); Hemoglobin 15.3 g/dL (11.5-16.0); IMMATURE GRAN ABSOLUTE AUTO 0.02 K/mm3 (0.00-0.10); IMMATURE GRAN PERCENT AUTO 0 % (0-1); LYMPHOCYTES ABSOLUTE AUTO 0.66 K/mm3 (0.84-5.20); LYMPHOCYTES PERCENT AUTO 8 % (21-46); MONOCYTES ABSOLUTE AUTO 0.29 K/mm3 (0.16-1.47); MONOCYTES PERCENT AUTO 3 % (4-13); Mean Corpuscular HGB 31.3 pg (26.0-34.0); Mean Corpuscular HGB Conc 32.3 g/dL (31.5-36.5); Mean Corpuscular Volume 97 fL (80-100); Mean Platelet Volume 10.8 fL (9.1-12.4); NEUTROPHILS PERCENT AUTO 89 % (41-73); Platelet Count 234 K/mm3 (150-400); RDW Standard Deviation 42.9 fL (35.1-46.3); Red Blood Cell Count 4.89 M/mm3 (3.80-5.20); White Blood Cell Count 8.69 K/mm3 (4.00-11.30)
[2020-01-01 21:24] LABS: Alanine Aminotransfer (ALT/SGP 17 U/L (12-78); Albumin, Blood 4.2 g/dL (3.4-5.0); Alk Phos 99 U/L (50-136); Anion Gap 8 mmol/L (6-16); Aspartate Aminotrans (AST/SGOT 26 U/L (12-37); Bilirubin, Total 0.6 mg/dL (0.1-1.0); Blood Urea Nitrogen 11 mg/dL (8-24); Bun/Creatinine Ratio 19.8 (12.0-20.0); CO2, Blood 26 mmol/L (21-32); Calcium, Blood 10.1 mg/dL (8.5-10.1); Chloride, Blood 105 mmol/L (98-108); Creatinine, Blood 0.56 mg/dL (0.40-1.00); Globulin, Blood 4.4 g/dL (2.2-4.0); Glomerular Filtration Rate >60 (60-); Glucose, Blood 131 mg/dL (70-99); Potassium, Blood 4.2 mmol/L (3.5-5.5); Sodium, Blood 139 mmol/L (136-145); Total Protein, Blood 8.6 g/dL (6.4-8.2)
[2020-01-01 21:42] LABS: Source, Urine Clean Catch
[2020-01-01 21:46] LABS: Bilirubin, Urine Neg (Neg); Blood, Urine 3+ (Neg); Glucose Qualitative, Urine Neg (Neg); Ketones, Urine 3+ (Neg); Leukocyte Esterase, Urine Neg (Neg); Nitrite, Urine Neg (Neg); Protein, Urine 3+ (Neg); Specific Gravity, Urine 1.015 (1.003-1.022); Urobilinogen, Urine NORM (Normal)
[2020-01-01 21:51] LABS: Appearance, Urine Clear (Clear); Color, Urine Yellow (P-Yellow)
[2020-01-01 21:52] LABS: Bacteria Few /hpf; Squamous Epithelial Cells Not Seen /hpf (Few); White Blood Cells, Urine 0-2 /hpf (0-5)
[2020-01-01] MEDS ORDERED: ALBU8HFA2 INH (22:20)
[2020-01-02] MEDS ORDERED: PROM25 PO (01:59)
[2020-01-02] MEDS ORDERED: ONDA4 PO (01:59)
== END 2020-01-02 02:21 | disposition home or self-care (01) ==
LOC: ER 20:38
PROVIDERS: Physician Assistant
DX: D73.5 Infarction of spleen (principal); J43.9 Emphysema, unspecified; F17.210 Nicotine dependence, cigarettes, uncomplicated; Z79.899 Other long term (current) drug therapy
CPT/HCPCS: 36415; 74177; 80053; 81001; 83690; 85025; 96361; 96374-59; 96375; 96376; 99284-25; A9270; J2405; J2550; J7030; Q9967

== ENCOUNTER 2020-04-09 16:43 | Observation (INO) | payer MEDICARE ==
[~2020-04-09] VITALS: Ht 154.9 cm; Wt 55.3 kg
[~2020-04-09 16:43] MED LIST changes: +ALBU8HFA2 INH; +ONDA4 PO; +PROM25 PO
[2020-04-09 17:50] LABS: BASOPHILS ABSOLUTE AUTO 0.03 K/mm3 (0.00-0.23); BASOPHILS PERCENT AUTO 0 % (0-2); EOSINOPHILS ABSOLUTE AUTO 0.01 K/mm3 (0.00-0.68); EOSINOPHILS PERCENT AUTO 0 % (0-6); Hematocrit 45.4 % (33.0-51.0); IMMATURE GRAN ABSOLUTE AUTO 0.04 K/mm3 (0.00-0.10); IMMATURE GRAN PERCENT AUTO 0 % (0-1); LYMPHOCYTES PERCENT AUTO 6 % (21-46); MONOCYTES ABSOLUTE AUTO 0.26 K/mm3 (0.16-1.47); MONOCYTES PERCENT AUTO 2 % (4-13); Mean Corpuscular HGB 31.8 pg (26.0-34.0); Mean Corpuscular Volume 96 fL (80-100); Mean Platelet Volume 11.7 fL (9.1-12.4); NEUTROPHILS ABSOLUTE AUTO 9.82 K/mm3 (1.96-9.15); NEUTROPHILS PERCENT AUTO 91 % (41-73); Platelet Count 172 K/mm3 (150-400); RDW Coefficient Variation 12.4 % (11.7-14.2); RDW Standard Deviation 44.7 fL (35.1-46.3); Red Blood Cell Count 4.71 M/mm3 (3.80-5.20); White Blood Cell Count 10.76 K/mm3 (4.00-11.30)
[2020-04-09 19:22] LABS: Alanine Aminotransfer (ALT/SGP 16 U/L (12-78); Albumin, Blood 4.3 g/dL (3.4-5.0); Albumin/Globulin Ratio 1.2 (0.8-1.8); Alk Phos 69 U/L (50-136); Anion Gap 8 mmol/L (6-16); Aspartate Aminotrans (AST/SGOT 23 U/L (12-37); Bilirubin, Total 0.7 mg/dL (0.1-1.0); Blood Urea Nitrogen 9 mg/dL (8-24); Bun/Creatinine Ratio 16.6 (12.0-20.0); CO2, Blood 19 mmol/L (21-32); Chloride, Blood 107 mmol/L (98-108); Creatinine, Blood 0.54 mg/dL (0.40-1.00); Globulin, Blood 3.6 g/dL (2.2-4.0); Glomerular Filtration Rate >60 (60-); Glucose, Blood 144 mg/dL (70-99); Potassium, Blood 3.6 mmol/L (3.5-5.5); Sodium, Blood 134 mmol/L (136-145); Total Protein, Blood 7.9 g/dL (6.4-8.2)
[2020-04-09 20:38] LABS: Source, Urine Clean Catch
[2020-04-09 20:42] LABS: Appearance, Urine Clear (Clear); Bilirubin, Urine Neg (Neg); Blood, Urine 4+ (Neg); Color, Urine Yellow (P-Yellow); Glucose Qualitative, Urine Neg (Neg); Ketones, Urine 3+ (Neg); Leukocyte Esterase, Urine Neg (Neg); Nitrite, Urine Neg (Neg); Protein, Urine 2+ (Neg); Urobilinogen, Urine NORM (Normal)
[2020-04-09 20:50] LABS: White Blood Cells, Urine 0-2 /hpf (0-5)
[2020-04-09 20:51] LABS: Bacteria Few /hpf; Squamous Epithelial Cells Few /hpf (Few)
[2020-04-10 03:40] LABS: BASOPHILS ABSOLUTE AUTO 0.01 K/mm3 (0.00-0.23); BASOPHILS PERCENT AUTO 0 % (0-2); EOSINOPHILS PERCENT AUTO 0 % (0-6); Hematocrit 42.8 % (33.0-51.0); Hemoglobin 14.1 g/dL (11.5-16.0); IMMATURE GRAN ABSOLUTE AUTO 0.03 K/mm3 (0.00-0.10); IMMATURE GRAN PERCENT AUTO 0 % (0-1); LYMPHOCYTES ABSOLUTE AUTO 0.64 K/mm3 (0.84-5.20); LYMPHOCYTES PERCENT AUTO 7 % (21-46); MONOCYTES ABSOLUTE AUTO 0.45 K/mm3 (0.16-1.47); MONOCYTES PERCENT AUTO 5 % (4-13); Mean Corpuscular HGB Conc 32.9 g/dL (31.5-36.5); Mean Corpuscular Volume 97 fL (80-100); Mean Platelet Volume 11.3 fL (9.1-12.4); NEUTROPHILS ABSOLUTE AUTO 8.13 K/mm3 (1.96-9.15); NEUTROPHILS PERCENT AUTO 88 % (41-73); Platelet Count 161 K/mm3 (150-400); RDW Coefficient Variation 12.7 % (11.7-14.2); RDW Standard Deviation 45.4 fL (35.1-46.3); Red Blood Cell Count 4.41 M/mm3 (3.80-5.20); White Blood Cell Count 9.26 K/mm3 (4.00-11.30)
[2020-04-10 03:56] LABS: Anion Gap 8 mmol/L (6-16); Blood Urea Nitrogen 9 mg/dL (8-24); Bun/Creatinine Ratio 13.7 (12.0-20.0); CO2, Blood 24 mmol/L (21-32); Calcium, Blood 8.2 mg/dL (8.5-10.1); Chloride, Blood 104 mmol/L (98-108); Creatinine, Blood 0.66 mg/dL (0.40-1.00); Glomerular Filtration Rate >60 (60-); Glucose, Blood 137 mg/dL (70-99); Potassium, Blood 3.8 mmol/L (3.5-5.5); Sodium, Blood 136 mmol/L (136-145)
[2020-04-10] MEDS ORDERED: PANT40 PO (12:30)
--- NOTE | 2020-04-10 14:30 | NUR ---
CARE COORDINATION REFERRAL - ADMIT: 04/09/20 DISCHARGE: DX:HYPERTENSION, NAUSEA, VOMITING, DEHYDRATION. CC: JACK CALL: RESIDENCE: HOME CAREGIVER: JESSIE GARAY, SPOUSE / PARTNER, CARLITO ROPER, CHILD, DX: CAROTID ATHEROSCLEROSIS, CKD-STAGE 3, CHRONIC OBSTRUCTIVE LUNG DISEASE, CAD, HTN, SEE LIST DME: CPAP CCM: NONE HOME HEALTH: NONE SUMMARY: ADMIT: 04/09/20 04/10/20- PER CHART REVIEW WITH DR. MARIE, PT IS IMPROVING AND HAVE ADVANCED HER DIET TO CLEAR LIQUIDS. IF PT TOLERATES THIS WELL, SHE WILL BE D/C TODAY FOR ER HOLDING. -SAYRA
== END 2020-04-10 15:09 | disposition home or self-care (01) ==
LOC: ER 16:43 → ERHOLD 16:44
PROVIDERS: Emergency Medicine; Physician Assistant; ADMIT Family Medicine
DX: R11.2 Nausea with vomiting, unspecified (principal); I10 Essential (primary) hypertension; C34.90 Malignant neoplasm of unspecified part of unspecified bronchus or lung; C78.7 Secondary malignant neoplasm of liver and intrahepatic bile duct; C79.51 Secondary malignant neoplasm of bone; F41.9 Anxiety disorder, unspecified; I25.10 Atherosclerotic heart disease of native coronary artery without angina pectoris; J44.9 Chronic obstructive pulmonary disease, unspecified; K25.9 Gastric ulcer, unspecified as acute or chronic, without hemorrhage or perforation; K21.9 Gastro-esophageal reflux disease without esophagitis; F32.9 Major depressive disorder, single episode, unspecified; F17.210 Nicotine dependence, cigarettes, uncomplicated; E86.0 Dehydration
CPT/HCPCS: 36415; 74018; 80048; 80053; 81001; 85025; 96361; 96372; 96374; 96375; 96376; 99284-25; 99285-25; A9270; G0378; J0360; J1650; J2405; J2550; J2765; J7030

== ENCOUNTER → 2021-08-23 | Outpatient (CLI) | payer MEDICARE | END | disposition home or self-care (01) | LOC: LAB SHORT 13:41 → LAB 13:41 | DX: R10.9 Unspecified abdominal pain (principal) | CPT/HCPCS: 87086 ==

== ENCOUNTER 2022-08-18 19:24 | Emergency (ER) | payer OTHER ==
[~2022-08-18] VITALS: Ht 149.9 cm; Wt 60.3 kg
[2022-08-18 19:59] LABS: BASOPHILS ABSOLUTE AUTO 0.04 K/mm3 (0.00-0.23); BASOPHILS PERCENT AUTO 0 % (0-2); EOSINOPHILS PERCENT AUTO 0 % (0-6); Hematocrit 44.6 % (33.0-51.0); Hemoglobin 15.2 g/dL (11.5-16.0); IMMATURE GRAN ABSOLUTE AUTO 0.05 K/mm3 (0.00-0.10); IMMATURE GRAN PERCENT AUTO 0 % (0-1); LYMPHOCYTES ABSOLUTE AUTO 1.01 K/mm3 (0.84-5.20); LYMPHOCYTES PERCENT AUTO 9 % (21-46); MONOCYTES ABSOLUTE AUTO 0.32 K/mm3 (0.16-1.47); MONOCYTES PERCENT AUTO 3 % (4-13); Mean Corpuscular HGB 32.5 pg (26.0-34.0); Mean Corpuscular HGB Conc 34.1 g/dL (31.5-36.5); Mean Corpuscular Volume 96 fL (80-100); Mean Platelet Volume 11.2 fL (9.1-12.4); NEUTROPHILS ABSOLUTE AUTO 10.03 K/mm3 (1.96-9.15); NEUTROPHILS PERCENT AUTO 88 % (41-73); Platelet Count 179 K/mm3 (150-400); RDW Coefficient Variation 11.7 % (11.7-14.2); RDW Standard Deviation 40.8 fL (35.1-46.3); Red Blood Cell Count 4.67 M/mm3 (3.80-5.20); White Blood Cell Count 11.45 K/mm3 (4.00-11.30)
[2022-08-18 20:14] LABS: Bilirubin, Total 0.3 mg/dL (0.1-1.0); Bun/Creatinine Ratio 17.2 (12.0-20.0); Creatinine, Blood 0.87 mg/dL (0.40-1.00); Globulin, Blood 3.9 g/dL (2.2-4.0); Potassium, Blood 3.8 mmol/L (3.5-5.5); Total Protein, Blood 7.9 g/dL (6.4-8.2)
[2022-08-19] MEDS ORDERED: SUBOXONE 8 MG-1 EACH SL (02:27)
[2022-08-19 02:33] LABS: Source, Urine Clean Catch
[2022-08-19 02:36] LABS: Bilirubin, Urine Neg (Neg); Blood, Urine 3+ (Neg); Glucose Qualitative, Urine Neg (Neg); Ketones, Urine Neg (Neg); Leukocyte Esterase, Urine Neg (Neg); Nitrite, Urine Neg (Neg); Protein, Urine 2+ (Neg); Specific Gravity, Urine 1.005 (1.003-1.022); Urobilinogen, Urine NORM (Normal)
[2022-08-19 02:53] LABS: Appearance, Urine Clear (Clear); Bacteria Not Seen /hpf; Color, Urine Yellow (P-Yellow); Red Blood Cells, Urine 0-2 /hpf (0-2); Squamous Epithelial Cells Few /hpf (Few); White Blood Cells, Urine 0-2 /hpf (0-5)
[2022-08-19] MEDS ORDERED: ONDA4ODT MM ×2 (03:48→03:49)
[2022-08-19 04:00] VITALS: BP 116/68
== END 2022-08-19 04:10 | disposition home or self-care (01) ==
LOC: ER 19:24
PROVIDERS: Emergency Medicine; Student in an Organized Health Care Education/Training Program
DX: R11.2 Nausea with vomiting, unspecified (principal); R10.13 Epigastric pain; J43.9 Emphysema, unspecified; I25.10 Atherosclerotic heart disease of native coronary artery without angina pectoris; F17.210 Nicotine dependence, cigarettes, uncomplicated; F32.A Depression, unspecified; C34.90 Malignant neoplasm of unspecified part of unspecified bronchus or lung; C78.7 Secondary malignant neoplasm of liver and intrahepatic bile duct; C79.51 Secondary malignant neoplasm of bone; Z95.5 Presence of coronary angioplasty implant and graft; Z87.11 Personal history of peptic ulcer disease; Z79.899 Other long term (current) drug therapy; Z79.891 Long term (current) use of opiate analgesic; Z88.5 Allergy status to narcotic agent
CPT/HCPCS: 74177; 80053; 81001; 83690; 85025; 93005; 93010; 96361; 96374-59; 96375; 99284-25; A9270; J1790; J2405; J7030; Q9967

== ENCOUNTER → 2022-09-22 | Outpatient (CLI) | payer OTHER ==
[~2022-09-22] MED LIST changes: +ONDA4ODT MM; +SUBOXONE 8 MG-1 EACH SL
[2022-09-22 20:18] LABS: Albumin, Blood 4.1 g/dL (3.4-5.0); Albumin/Globulin Ratio 1.4 (0.8-1.8); Bilirubin, Total 0.3 mg/dL (0.1-1.0); Bun/Creatinine Ratio 11.3 (12.0-20.0); Calcium, Blood 10.2 mg/dL (8.5-10.1); Creatinine, Blood 1.06 mg/dL (0.40-1.00); Phosphorus, Blood 3.7 mg/dL (2.5-4.9); Potassium, Blood 3.5 mmol/L (3.5-5.5); Total Protein, Blood 7.1 g/dL (6.4-8.2)
== END | disposition home or self-care (01) ==
LOC: LAB SHORT 19:10 → LAB 19:10
PROVIDERS: Internal Medicine Hematology & Oncology
DX: C34.90 Malignant neoplasm of unspecified part of unspecified bronchus or lung (principal)
CPT/HCPCS: 80053; 84100

== ENCOUNTER 2023-01-09 11:02 | Emergency (ER) | payer OTHER ==
[~2023-01-09] VITALS: Ht 149.9 cm; Wt 61.2 kg
[2023-01-09 12:42] LABS: BASOPHILS ABSOLUTE AUTO 0.03 K/mm3 (0.00-0.23); BASOPHILS PERCENT AUTO 1 % (0-2); EOSINOPHILS ABSOLUTE AUTO 0.19 K/mm3 (0.00-0.68); EOSINOPHILS PERCENT AUTO 3 % (0-6); Hematocrit 39.8 % (33.0-51.0); Hemoglobin 12.9 g/dL (11.5-16.0); IMMATURE GRAN ABSOLUTE AUTO 0.05 K/mm3 (0.00-0.10); IMMATURE GRAN PERCENT AUTO 1 % (0-1); LYMPHOCYTES ABSOLUTE AUTO 1.82 K/mm3 (0.84-5.20); LYMPHOCYTES PERCENT AUTO 30 % (21-46); MONOCYTES ABSOLUTE AUTO 0.55 K/mm3 (0.16-1.47); MONOCYTES PERCENT AUTO 9 % (4-13); Mean Corpuscular HGB 33.8 pg (26.0-34.0); Mean Corpuscular HGB Conc 32.4 g/dL (31.5-36.5); Mean Corpuscular Volume 104 fL (80-100); Mean Platelet Volume 11.1 fL (9.1-12.4); NEUTROPHILS ABSOLUTE AUTO 3.37 K/mm3 (1.96-9.15); NEUTROPHILS PERCENT AUTO 56 % (41-73); Platelet Count 165 K/mm3 (150-400); RDW Coefficient Variation 12.9 % (11.7-14.2); RDW Standard Deviation 49.1 fL (35.1-46.3); Red Blood Cell Count 3.82 M/mm3 (3.80-5.20); White Blood Cell Count 6.01 K/mm3 (4.00-11.30)
[2023-01-09 12:54] VITALS: BP 113/79
[2023-01-09 13:07] LABS: Albumin, Blood 3.3 g/dL (3.4-5.0); Albumin/Globulin Ratio 0.8 (0.8-1.8); Bilirubin, Total 0.3 mg/dL (0.1-1.0); Bun/Creatinine Ratio 19.4 (12.0-20.0); Creatinine, Blood 1.03 mg/dL (0.40-1.00); Globulin, Blood 3.9 g/dL (2.2-4.0); Potassium, Blood 5.1 mmol/L (3.5-5.5); Total Protein, Blood 7.2 g/dL (6.4-8.2)
[2023-01-09 13:27] LABS: Source, Urine Clean Catch
[2023-01-09 13:34] LABS: Appearance, Urine Clear (Clear); Bilirubin, Urine Neg (Neg); Blood, Urine 1+ (Neg); Glucose Qualitative, Urine Neg (Neg); Ketones, Urine Neg (Neg); Leukocyte Esterase, Urine Neg (Neg); Nitrite, Urine Neg (Neg); Protein, Urine Neg (Neg); Urobilinogen, Urine NORM (Normal)
[2023-01-09 13:40] LABS: Color, Urine Pale Yellow (P-Yellow)
[2023-01-09 13:42] LABS: Bacteria Rare /hpf; Squamous Epithelial Cells Rare /hpf (Few); White Blood Cells, Urine 0-2 /hpf (0-5)
[2023-01-09] MEDS ORDERED: KETO10 PO (14:39)
== END 2023-01-09 15:03 | disposition home or self-care (01) ==
LOC: ER 11:02
PROVIDERS: Physician Assistant
DX: G89.3 Neoplasm related pain (acute) (chronic) (principal); M25.551 Pain in right hip; C79.51 Secondary malignant neoplasm of bone; J43.9 Emphysema, unspecified; R10.12 Left upper quadrant pain; K59.00 Constipation, unspecified; F17.210 Nicotine dependence, cigarettes, uncomplicated; Z88.5 Allergy status to narcotic agent
CPT/HCPCS: 71046; 73502; 74177; 80053; 81001; 85025; 96374; 99284-25; J1885; Q9967

== ENCOUNTER → 2023-01-18 | Outpatient (CLI) | payer OTHER ==
[~2023-01-18] MED LIST changes: +KETO10 PO
== END ==
LOC: LAB 10:30 → LAB SHORT 10:30
DX: N39.0 Urinary tract infection, site not specified (principal)
CPT/HCPCS: 87086

== ENCOUNTER → 2023-02-27 | Outpatient (CLI) | payer OTHER | END | disposition home or self-care (01) | LOC: LAB SHORT 18:06 → LAB 18:06 | DX: N39.0 Urinary tract infection, site not specified (principal) | CPT/HCPCS: 87077; 87086; 87186 ==

== ENCOUNTER → 2023-03-11 | Outpatient (CLI) | payer OTHER ==
[2023-03-11 15:11] LABS: BASOPHILS ABSOLUTE AUTO 0.02 K/mm3 (0.00-0.23); BASOPHILS PERCENT AUTO 0 % (0-2); EOSINOPHILS ABSOLUTE AUTO 0.01 K/mm3 (0.00-0.68); EOSINOPHILS PERCENT AUTO 0 % (0-6); Hematocrit 44.9 % (33.0-51.0); Hemoglobin 15.1 g/dL (11.5-16.0); IMMATURE GRAN ABSOLUTE AUTO 0.04 K/mm3 (0.00-0.10); IMMATURE GRAN PERCENT AUTO 0 % (0-1); LYMPHOCYTES ABSOLUTE AUTO 0.55 K/mm3 (0.84-5.20); LYMPHOCYTES PERCENT AUTO 5 % (21-46); MONOCYTES ABSOLUTE AUTO 0.19 K/mm3 (0.16-1.47); MONOCYTES PERCENT AUTO 2 % (4-13); Mean Corpuscular HGB Conc 33.6 g/dL (31.5-36.5); Mean Corpuscular Volume 98 fL (80-100); Mean Platelet Volume 11.6 fL (9.1-12.4); NEUTROPHILS ABSOLUTE AUTO 9.31 K/mm3 (1.96-9.15); NEUTROPHILS PERCENT AUTO 92 % (41-73); Platelet Count 147 K/mm3 (150-400); RDW Standard Deviation 43.2 fL (35.1-46.3); Red Blood Cell Count 4.57 M/mm3 (3.80-5.20); White Blood Cell Count 10.12 K/mm3 (4.00-11.30)
[2023-03-11 15:21] LABS: Albumin, Blood 4.4 g/dL (3.4-5.0); Albumin/Globulin Ratio 1.2 (0.8-1.8); Bilirubin, Total 0.5 mg/dL (0.1-1.0); Bun/Creatinine Ratio 12.4 (12.0-20.0); Calcium, Blood 10.1 mg/dL (8.5-10.1); Creatinine, Blood 1.13 mg/dL (0.40-1.00); Globulin, Blood 3.8 g/dL (2.2-4.0); Potassium, Blood 3.7 mmol/L (3.5-5.5); Total Protein, Blood 8.2 g/dL (6.4-8.2)
== END | disposition home or self-care (01) ==
LOC: LAB SHORT 15:06 → LAB 15:06
PROVIDERS: Physician Assistant Medical
DX: R07.89 Other chest pain (principal)
CPT/HCPCS: 80053; 83690; 85025

== ENCOUNTER → 2023-03-19 | Outpatient (CLI) | payer OTHER ==
[2023-03-19 12:54] LABS: BASOPHILS ABSOLUTE AUTO 0.03 K/mm3 (0.00-0.23); BASOPHILS PERCENT AUTO 0 % (0-2); EOSINOPHILS PERCENT AUTO 0 % (0-6); Hematocrit 46.4 % (33.0-51.0); Hemoglobin 15.7 g/dL (11.5-16.0); IMMATURE GRAN ABSOLUTE AUTO 0.04 K/mm3 (0.00-0.10); IMMATURE GRAN PERCENT AUTO 0 % (0-1); LYMPHOCYTES ABSOLUTE AUTO 0.75 K/mm3 (0.84-5.20); LYMPHOCYTES PERCENT AUTO 7 % (21-46); MONOCYTES ABSOLUTE AUTO 0.15 K/mm3 (0.16-1.47); MONOCYTES PERCENT AUTO 2 % (4-13); Mean Corpuscular HGB 32.4 pg (26.0-34.0); Mean Corpuscular HGB Conc 33.8 g/dL (31.5-36.5); Mean Corpuscular Volume 96 fL (80-100); Mean Platelet Volume 11.2 fL (9.1-12.4); NEUTROPHILS ABSOLUTE AUTO 9.17 K/mm3 (1.96-9.15); NEUTROPHILS PERCENT AUTO 90 % (41-73); Platelet Count 194 K/mm3 (150-400); RDW Coefficient Variation 11.8 % (11.7-14.2); RDW Standard Deviation 41.2 fL (35.1-46.3); Red Blood Cell Count 4.85 M/mm3 (3.80-5.20); White Blood Cell Count 10.14 K/mm3 (4.00-11.30)
[2023-03-19 13:11] LABS: Albumin, Blood 4.4 g/dL (3.4-5.0); Albumin/Globulin Ratio 1.3 (0.8-1.8); Bilirubin, Total 0.5 mg/dL (0.1-1.0); Bun/Creatinine Ratio 14.4 (12.0-20.0); Calcium, Blood 9.7 mg/dL (8.5-10.1); Creatinine, Blood 1.32 mg/dL (0.40-1.00); Globulin, Blood 3.4 g/dL (2.2-4.0); Potassium, Blood 3.3 mmol/L (3.5-5.5); Total Protein, Blood 7.8 g/dL (6.4-8.2)
== END | disposition home or self-care (01) ==
LOC: LAB 12:48 → LAB SHORT 12:48
PROVIDERS: Chiropractor
DX: R10.9 Unspecified abdominal pain (principal)
CPT/HCPCS: 80053; 83690; 85025

== ENCOUNTER → 2023-06-22 | Outpatient (CLI) | payer OTHER | END | disposition home or self-care (01) | LOC: LAB 10:00 → LAB SHORT 10:00 | DX: R05.1 Acute cough (principal) | CPT/HCPCS: 87070; 87205 ==

== ENCOUNTER → 2023-10-27 | Outpatient (CLI) | payer OTHER ==
[2023-10-27 14:55] LABS: Stool Occult Bld Immuno 1 Negative (NEGATIVE)
== END | disposition home or self-care (01) ==
LOC: LAB 11:56 → LAB SHORT 11:56
PROVIDERS: Family Medicine
DX: Z12.11 Encounter for screening for malignant neoplasm of colon (principal)
CPT/HCPCS: G0328

== ENCOUNTER 2024-02-03 14:06 | Inpatient (IN) | payer OTHER ==
[~2024-02-03] VITALS: Ht 149.9 cm; Wt 57.3 kg
[2024-02-03 15:08] LABS: BASOPHILS ABSOLUTE AUTO 0.04 K/mm3 (0.00-0.23); BASOPHILS PERCENT AUTO 1 % (0-2); EOSINOPHILS ABSOLUTE AUTO 0.08 K/mm3 (0.00-0.68); EOSINOPHILS PERCENT AUTO 1 % (0-6); Hematocrit 40.3 % (33.0-51.0); Hemoglobin 13.5 g/dL (11.5-16.0); IMMATURE GRAN ABSOLUTE AUTO 0.04 K/mm3 (0.00-0.10); IMMATURE GRAN PERCENT AUTO 1 % (0-1); LYMPHOCYTES ABSOLUTE AUTO 1.68 K/mm3 (0.84-5.20); LYMPHOCYTES PERCENT AUTO 22 % (21-46); MONOCYTES ABSOLUTE AUTO 0.57 K/mm3 (0.16-1.47); MONOCYTES PERCENT AUTO 7 % (4-13); Mean Corpuscular HGB 34.1 pg (26.0-34.0); Mean Corpuscular HGB Conc 33.5 g/dL (31.5-36.5); Mean Corpuscular Volume 102 fL (80-100); Mean Platelet Volume 11.4 fL (9.1-12.4); NEUTROPHILS ABSOLUTE AUTO 5.32 K/mm3 (1.96-9.15); NEUTROPHILS PERCENT AUTO 69 % (41-73); Platelet Count 137 K/mm3 (150-400); RDW Coefficient Variation 11.5 % (11.7-14.2); RDW Standard Deviation 43.4 fL (35.1-46.3); Red Blood Cell Count 3.96 M/mm3 (3.80-5.20); White Blood Cell Count 7.73 K/mm3 (4.00-11.30)
[2024-02-03 15:42] LABS: Albumin/Globulin Ratio 1.2 (0.8-1.8); Bilirubin, Total 0.3 mg/dL (0.1-1.0); Bun/Creatinine Ratio 14.8 (12.0-20.0); Calcium, Blood 9.4 mg/dL (8.5-10.1); Creatinine, Blood 1.15 mg/dL (0.40-1.00); Globulin, Blood 3.4 g/dL (2.2-4.0); Potassium, Blood 3.9 mmol/L (3.5-5.5); Total Protein, Blood 7.4 g/dL (6.4-8.2)
[2024-02-03] MEDS ORDERED: Ampicillin Sod/Sulbactam Sod 3 GM in NS 100 ML IV ONE (17:40)
[2024-02-03] MEDS ORDERED: NS 1,000 ML IV SCH ×2 (17:45→19:10)
[2024-02-03] MEDS ORDERED: Nicotine 21 MG PATCH TOP ONE (18:45)
[2024-02-03] MEDS ORDERED: Albuterol 2.5 MG/3 ML VIAL INH PRN (19:05)
[2024-02-03] MEDS ORDERED: ALPRAZolam 0.5 MG Tab PO PRN (19:05)
[2024-02-03] MEDS ORDERED: Ondansetron HCl 2 MG / ML 2ML Vial IV PRN (19:10)
[2024-02-03] MEDS ORDERED: Nicotine 21 MG PATCH TOP SCH (20:00)
[2024-02-03] MEDS ORDERED: ALPRAZolam 0.5 MG Tab PO ONE (20:00)
[2024-02-03] MEDS ORDERED: Percocet 5-3251 EACH PO (20:09)
[2024-02-03] MEDS ORDERED: QUET25 PO (20:11)
[2024-02-03] MEDS ORDERED: OXYB5 PO (20:11)
[2024-02-03] MEDS ORDERED: LISI20 PO (20:12)
[2024-02-03] MEDS ORDERED: FLU VACC TS2024-25(6MOS UP)/PF 45 MCG/0.5 ML SYRINGE IM ONE (21:00)
[2024-02-03] MEDS ORDERED: Lactobacil 2-S.Thermo-Bifido 1 1 Cap PO SCH (21:00)
[2024-02-03 21:14] VITALS: BP 179/77
[2024-02-03 23:48] LABS: Hematocrit 36.2 % (33.0-51.0); Hemoglobin 12.1 g/dL (11.5-16.0)
[2024-02-04] MEDS ORDERED: Piperacillin/Tazobactam Sod 3.375 GM in NS 100 ML IV SCH
[2024-02-04 03:30] VITALS: BP 158/84
--- NOTE | 2024-02-04 05:46 | NUR ---
Pt admitted from ED this shift, Pt denies dizziness, pain, and has no other neurological issue, b/p elevated, Pt denies nausea, and has not stooled since time in ED. Abdomen soft, and BS present. Pt states she takes oxycodone 5mg x2 tabs BID, and oxycodone ER 5mg (she thinks) daily, these are not ordered at this time, will adress on days. Has a nicotene patch on as she smokes 1/2 pack a day. Awaiting for surgery consult.
[2024-02-04 05:48] LABS: BASOPHILS ABSOLUTE AUTO 0.04 K/mm3 (0.00-0.23); BASOPHILS PERCENT AUTO 1 % (0-2); EOSINOPHILS ABSOLUTE AUTO 0.13 K/mm3 (0.00-0.68); EOSINOPHILS PERCENT AUTO 2 % (0-6); Hematocrit 36.5 % (33.0-51.0); Hemoglobin 12.4 g/dL (11.5-16.0); IMMATURE GRAN ABSOLUTE AUTO 0.01 K/mm3 (0.00-0.10); IMMATURE GRAN PERCENT AUTO 0 % (0-1); LYMPHOCYTES ABSOLUTE AUTO 1.87 K/mm3 (0.84-5.20); LYMPHOCYTES PERCENT AUTO 31 % (21-46); MONOCYTES ABSOLUTE AUTO 0.52 K/mm3 (0.16-1.47); MONOCYTES PERCENT AUTO 9 % (4-13); Mean Corpuscular HGB 34.2 pg (26.0-34.0); Mean Corpuscular Volume 101 fL (80-100); Mean Platelet Volume 11.6 fL (9.1-12.4); NEUTROPHILS ABSOLUTE AUTO 3.41 K/mm3 (1.96-9.15); NEUTROPHILS PERCENT AUTO 57 % (41-73); Platelet Count 125 K/mm3 (150-400); RDW Coefficient Variation 11.6 % (11.7-14.2); RDW Standard Deviation 42.8 fL (35.1-46.3); Red Blood Cell Count 3.63 M/mm3 (3.80-5.20); White Blood Cell Count 5.98 K/mm3 (4.00-11.30)
[2024-02-04 05:50] LABS: Bun/Creatinine Ratio 10.7 (12.0-20.0); Creatinine, Blood 1.12 mg/dL (0.40-1.00); Magnesium, Blood 1.9 mg/dL (1.6-2.4); Potassium, Blood 3.8 mmol/L (3.5-5.5)
[2024-02-04 05:53] LABS: International Normalized Ratio 0.99; Prothrombin Time Results 10.6 Sec (9.7-11.5)
[2024-02-04] MEDS ORDERED: Pantoprazole Sodium 40 MG Injection IV SCH (06:00)
[2024-02-04 07:43] VITALS: BP 151/79
[2024-02-04] MEDS ORDERED: OxyCODONE 5 mg/Acetamin 325 mg TABLET PO PRN (13:55)
[2024-02-04] MEDS ORDERED: QUEtiapine Fumarate 25 MG Tab PO PRN (13:55)
[2024-02-04] MEDS ORDERED: OXYC5 PO (14:08)
[2024-02-04] MEDS ORDERED: Oxybutynin Chlor5 M1 PO (14:09)
[2024-02-04 15:29] VITALS: BP 171/89
[2024-02-04 16:37] VITALS: BP 152/89
--- NOTE | 2024-02-04 16:53 | NUR ---
AMA MS GARAY HAS NOT HAD ANY RECTAL BLEEDING THIS SHIFT. SHE C/O ANXIETY THAT IS HER BASELINE, GIVEN PRN MEDICATIONS FOR IT. SHE DENIED DIZZYNESS. STEADY GAIT. SHE WAS TEARFUL TODAY AFTER SEEING DR MEDINA. SHE TALKED WITH HER AND DECIDED TO SIGN OUT AGAINST MEDICAL ADVICE. I CALLED AND NOTIFIED DR MEDINA AND DR ODONNELL BEFORE SHE LEFT AND NOTIFIED DR ODONNELL AFTER SHE LEFT. MS GARAY SIGNED THE AMA PAPERWORK AND VERBALISED UNDERSTANDING THAT SHE CAN RETURN TO THE EMERGENCY ROOM IF SHE CHANGES HER MIND OR SYMPTOMS REOCCUR. SHE SAID SHE WILL FOLLOW UP WITH HER PRIMARY CARE DOCTOR. COMPENSATION VICE PRESIDENT REMOVED PIV PRIOR TO DISCHARGE. SHE WALKED OUT FROM THE MEDICAL UNIT WITH HER AT 1650HRS.
[2024-02-05] MEDS ORDERED: Lisinopril 20 MG Tab PO SCH (09:00)
[2024-02-05] MEDS ORDERED: oxyBUTYnin chloride 5 MG TAB PO SCH (09:00)
[2024-02-05] MEDS ORDERED: Citalopram Hydrobromide 20 MG Tab PO SCH (09:00)
== END 2024-02-04 16:56 | disposition left against medical advice (07) | DRG 392 ==
LOC: ER 14:06 → MEDS 14:07
PROVIDERS: Nurse Practitioner Acute Care; Physician Assistant; ADMIT Student in an Organized Health Care Education/Training Program
DX: A09 Infectious gastroenteritis and colitis, unspecified (principal); K92.1 Melena; K63.0 Abscess of intestine; K52.89 Other specified noninfective gastroenteritis and colitis; J44.9 Chronic obstructive pulmonary disease, unspecified; I25.10 Atherosclerotic heart disease of native coronary artery without angina pectoris; F41.9 Anxiety disorder, unspecified; I12.9 Hypertensive chronic kidney disease with stage 1 through stage 4 chronic kidney disease, or unspecified chronic kidney disease; N18.30 Chronic kidney disease, stage 3 unspecified; D69.6 Thrombocytopenia, unspecified; G47.33 Obstructive sleep apnea (adult) (pediatric); F17.210 Nicotine dependence, cigarettes, uncomplicated; Z87.11 Personal history of peptic ulcer disease; Z85.118 Personal history of other malignant neoplasm of bronchus and lung; Z86.0100 Personal history of colon polyps, unspecified; Z88.5 Allergy status to narcotic agent; Z79.899 Other long term (current) drug therapy; Z95.5 Presence of coronary angioplasty implant and graft; Z90.49 Acquired absence of other specified parts of digestive tract
CPT/HCPCS: 36415; 74177; 80048; 80053; 83735; 84484; 85014; 85018; 85025; 85610; 93005; 93010; 94760; 96365-59; 99285-25; A9270; J0295; J2470; J2543; J7030; Q9967

== ENCOUNTER 2024-02-10 15:15 | Emergency (ER) | payer OTHER ==
[~2024-02-10] VITALS: Ht 149.9 cm; Wt 56.7 kg
[~2024-02-10 15:15] MED LIST changes: +LISI20 PO; +OXYB5 PO; +OXYC5 PO; +Oxybutynin Chlor5 M1 PO; +Percocet 5-3251 EACH PO; +QUET25 PO
[2024-02-10 15:25] VITALS: BP 152/89
[2024-02-10 16:25] LABS: BASOPHILS ABSOLUTE AUTO 0.06 K/mm3 (0.00-0.23); BASOPHILS PERCENT AUTO 1 % (0-2); EOSINOPHILS ABSOLUTE AUTO 0.13 K/mm3 (0.00-0.68); EOSINOPHILS PERCENT AUTO 2 % (0-6); Hematocrit 40.8 % (33.0-51.0); Hemoglobin 13.7 g/dL (11.5-16.0); IMMATURE GRAN ABSOLUTE AUTO 0.02 K/mm3 (0.00-0.10); IMMATURE GRAN PERCENT AUTO 0 % (0-1); LYMPHOCYTES ABSOLUTE AUTO 2.84 K/mm3 (0.84-5.20); LYMPHOCYTES PERCENT AUTO 34 % (21-46); MONOCYTES ABSOLUTE AUTO 0.73 K/mm3 (0.16-1.47); MONOCYTES PERCENT AUTO 9 % (4-13); Mean Corpuscular HGB 34.7 pg (26.0-34.0); Mean Corpuscular HGB Conc 33.6 g/dL (31.5-36.5); Mean Corpuscular Volume 103 fL (80-100); Mean Platelet Volume 11.6 fL (9.1-12.4); NEUTROPHILS ABSOLUTE AUTO 4.54 K/mm3 (1.96-9.15); NEUTROPHILS PERCENT AUTO 55 % (41-73); Platelet Count 154 K/mm3 (150-400); RDW Coefficient Variation 11.6 % (11.7-14.2); RDW Standard Deviation 44.4 fL (35.1-46.3); Red Blood Cell Count 3.95 M/mm3 (3.80-5.20); White Blood Cell Count 8.32 K/mm3 (4.00-11.30)
[2024-02-10 16:44] LABS: Albumin, Blood 3.9 g/dL (3.4-5.0); Bilirubin, Total 0.2 mg/dL (0.1-1.0); Bun/Creatinine Ratio 8.8 (12.0-20.0); Calcium, Blood 9.2 mg/dL (8.5-10.1); Creatinine, Blood 1.02 mg/dL (0.40-1.00); Globulin, Blood 3.9 g/dL (2.2-4.0); Potassium, Blood 3.7 mmol/L (3.5-5.5); Total Protein, Blood 7.8 g/dL (6.4-8.2)
== END 2024-02-10 18:16 | disposition left against medical advice (07) ==
LOC: ER 15:15
PROVIDERS: Emergency Medicine
DX: Z53.21 Procedure and treatment not carried out due to patient leaving prior to being seen by health care provider (principal)
CPT/HCPCS: 80053; 85025; 99281

== ENCOUNTER 2024-02-13 10:52 | Emergency (ER) | payer OTHER ==
[~2024-02-13] VITALS: Ht 149.9 cm; Wt 56.7 kg
[2024-02-13 12:00] LABS: BASOPHILS ABSOLUTE AUTO 0.05 K/mm3 (0.00-0.23); BASOPHILS PERCENT AUTO 1 % (0-2); EOSINOPHILS PERCENT AUTO 1 % (0-6); Hematocrit 39.8 % (33.0-51.0); Hemoglobin 13.4 g/dL (11.5-16.0); IMMATURE GRAN ABSOLUTE AUTO 0.03 K/mm3 (0.00-0.10); IMMATURE GRAN PERCENT AUTO 0 % (0-1); LYMPHOCYTES ABSOLUTE AUTO 2.22 K/mm3 (0.84-5.20); LYMPHOCYTES PERCENT AUTO 28 % (21-46); MONOCYTES ABSOLUTE AUTO 0.66 K/mm3 (0.16-1.47); MONOCYTES PERCENT AUTO 8 % (4-13); Mean Corpuscular HGB 34.2 pg (26.0-34.0); Mean Corpuscular HGB Conc 33.7 g/dL (31.5-36.5); Mean Corpuscular Volume 102 fL (80-100); Mean Platelet Volume 11.6 fL (9.1-12.4); NEUTROPHILS ABSOLUTE AUTO 4.77 K/mm3 (1.96-9.15); NEUTROPHILS PERCENT AUTO 61 % (41-73); Platelet Count 155 K/mm3 (150-400); RDW Coefficient Variation 11.7 % (11.7-14.2); RDW Standard Deviation 43.1 fL (35.1-46.3); Red Blood Cell Count 3.92 M/mm3 (3.80-5.20); White Blood Cell Count 7.83 K/mm3 (4.00-11.30)
[2024-02-13 12:15] LABS: Albumin, Blood 3.9 g/dL (3.4-5.0); Bilirubin, Total 0.3 mg/dL (0.1-1.0); Calcium, Blood 9.8 mg/dL (8.5-10.1); Creatinine, Blood 1.11 mg/dL (0.40-1.00); Globulin, Blood 3.8 g/dL (2.2-4.0); Potassium, Blood 4.1 mmol/L (3.5-5.5); Total Protein, Blood 7.7 g/dL (6.4-8.2)
[2024-02-13 15:00] LABS: Source, Urine Clean Catch
[2024-02-13 15:14] LABS: Bilirubin, Urine Neg (Neg); Blood, Urine Neg (Neg); Glucose Qualitative, Urine Neg (Neg); Ketones, Urine Neg (Neg); Leukocyte Esterase, Urine 1+ (Neg); Nitrite, Urine Neg (Neg); Protein, Urine Neg (Neg); Urobilinogen, Urine NORM (Normal)
[2024-02-13 15:16] LABS: Color, Urine Pale Yellow (P-Yellow)
[2024-02-13 15:26] VITALS: BP 148/75
[2024-02-13 15:28] LABS: Appearance, Urine Clear (Clear)
[2024-02-13 15:29] LABS: Bacteria Rare /hpf; Red Blood Cells, Urine Not Seen /hpf (0-2); Squamous Epithelial Cells Rare /hpf (Few); White Blood Cells, Urine 0-2 /hpf (0-5)
== END 2024-02-13 15:26 | disposition home or self-care (01) ==
LOC: ER 10:52
PROVIDERS: Emergency Medicine; Student in an Organized Health Care Education/Training Program
DX: K52.9 Noninfective gastroenteritis and colitis, unspecified (principal); J43.9 Emphysema, unspecified; F17.210 Nicotine dependence, cigarettes, uncomplicated; Z87.11 Personal history of peptic ulcer disease; Z88.5 Allergy status to narcotic agent; Z79.899 Other long term (current) drug therapy
CPT/HCPCS: 74177; 80053; 81001; 83690; 85025; 87077; 87086; 87186; 99284-25; Q9967

== ENCOUNTER → 2024-02-18 | Outpatient (CLI) | payer OTHER | LOC: LAB SHORT 12:14 → LAB 12:14 | DX: R82.81 Pyuria (principal) | CPT/HCPCS: 87077; 87086; 87186 ==